=== PATIENT | female | born 1945 | race African-American/Black ===

== ENCOUNTER 2025-06-08 13:04 | Outpatient (AMB) | payer MEDICAID, SELFPAY ==
--- NOTE | 2025-06-08 13:08 | MHC.PC.OV ---
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 Accompanied by: Self / Same As Patient Allergies No Known Allergies Allergy (Verified 06/08/25 13:08) Medication List - Last Reconciled 06/08/25 by Fortunato Dillon MD [rollator As directed] Tobacco use date assessed: 06/08/25 Fall risk assessment: No Falls in past year Last assessed Fall Risk: 06/08/25 Dental Screening Dental Screen Date: 06/08/25 Did you have a dental visit in the last 12 months?: Yes Was dental information given to patient?: Patient has dentist HPI HPI Comments History of Present Illness Details History of Present Illness The patient is a 79-year-old female presenting for evaluation of chronic low back pain and a request for a mobility device. Chronic low back pain: The patient has been experiencing low back pain for approximately 2 years. The pain is localized to the lower back without radiation and is exacerbated by walking even short distances, requiring her to sit down to rest. There is no history of accidents or trauma to her back. She underwent a back X-ray about a month ago, which reportedly showed age-related weakening. Physical therapy was suggested at that time but has not been initiated. For pain management, she uses Tylenol as needed. Surgical History: - No history of surgeries was reported. Medications: - Tylenol as needed for back pain. - The patient denies taking any other medications. Social History: - Substance Use: Denies any history of smoking. - Functional Status: The patient has limited ability to walk due to back pain and needs to sit down after short distances. - Language: The patient speaks Swahili and her daughter served as an freelance interpreter/translator for a portion of the visit. Family History: - Denies family history of cancer, including breast and uterine cancer. Diagnostic Results: - Back X-ray (approximately one month ago): Reportedly showed her back is weakening due to her age. - Vitals: Initial blood pressure reading was elevated. Past Medical History - Chronic low back pain for approximately 2 years. - History of a nail injury as a child. - No known allergies. - Denies history of coronary artery disease. Health Maintenance - The patient has no prior history of Pap smears, mammograms, or colonoscopies. - Baseline labs will be ordered for health screening. [facility] Medical History (Updated 06/08/25 @ 13:37 by Fortunato Dillon MD) Gait instability Chronic lower back pain Family History (Updated 06/08/25 @ 13:09 by Cholo Singh MA) Mother No problems noted. Father No problems noted. Social History Housing: House Patient Tobacco Use Status: Never used Tobacco service: No Current occupational status: retired Cognitive needs: No Hearing needs: No Vision needs: No Questionnaire PHQ-9 Over the last 2 weeks, how often have you been bothered by any of the following problems? 1. Little interest or pleasure in doing things: not at all 2. Feeling down, depressed, or hopeless: not at all 3. Trouble falling or staying asleep, or sleeping too much: not at all 4. Feeling tired or having little energy: not at all 5. Poor appetite or overeating: not at all 6. Feeling bad about yourself - or that you are a failure or have let yourself or your family down: not at all 7. Trouble concentrating on things, such as reading the newspaper or watching television: not at all 8. Moving or speaking so slowly that other people could have noticed. Or the opposite - being so fidgety or restless that you have been moving around a lot more than usual: not at all 9. Thoughts that you would be better off or of hurting yourself in some way: not at all Total score: 0 Source: Developed by Drs. Home Fenton, Pina Vivar, Herbert Ochoa and colleagues, with an educational saud from [employer]. Thrive Questionnaire Date Thrive assessed: 06/05/25 I am a: Patient What is your living situation today?: I have a steady place to live Within the past 12 months, did the food you bought not last and you didn't have the money to get more?: Never true Within the past 12 months, did you worry whether your food would run out before you got money to buy more?: Never true Do you have trouble paying for medicines?: No Do you have trouble getting transportation to medical appointments?: No Do you have trouble paying your heating and electricity bill?: No Do you have trouble taking care of your child, family member or friend?: No Do you have trouble with day-to-day activities such as bathing, preparing meals, shopping, managing finances, etc.?: No Are you currently unemployed and looking for a job?: I choose not to answer this question Are you interested in more education?: No Please select the resources that you would like help with: Food and Utilities Currently or been in a relationship where the following occur: No concerns reported THRIVE Score: 0 AUDIT C Alcohol Use Questionnaire (AUDIT-C) 1. How often do you have a drink containing alcohol?: Never 3. How often do you have six or more drinks on one occasion?: Never Total Score: 0 WALTER-7 AMB Questionnaire WALTER-7 Feeling nervous, anxious, or on edge: 0 = Not at all Not being able to stop or control worryin = Not at all Worrying too much about different things: 0 = Not at all Trouble relaxin = Not at all Being so restless that it is hard to sit still: 0 = Not at all Becoming easily annoyed or irritable: 0 = Not at all Feeling afraid as if something awful might happen: 0 = Not at all Total WALTER-7 score (0-4 normal; 5-9 mild; 10-14 moderate; 15-21 severe): 0 Source: Developed by Drs. Home Fenton, Pina Vivar, Herbetr Ochoa and colleagues, with an educational saud from [employer]. Review of Systems Narrative Review of Systems - Musculoskeletal: Reports chronic low back pain for approximately two years, which worsens with walking. - Neurological: Denies radiation of back pain. - Constitutional: Reports difficulty walking significant distances. - Genitourinary/Gastrointestinal: Reports normal bowel and bladder function. - Integumentary: Denies swelling in her lower legs. 10-point ROS reviewed and negative except as noted in HPI Physical exam (Primary Care) Vital Signs: Last Vital Signs Temp 97.8 F 06/08/25 13:13 Pulse 68 06/08/25 13:13 Resp 16 06/08/25 13:13 BP 154/67 H 06/08/25 13:13 Pulse Ox 96 06/08/25 13:13 Oxygen Delivery Method Room Air 06/08/25 13:13 BMI result Body Mass Index 21.6 Tobacco/Smoking Status: Tobacco use Status Tobacco use date assessed 06/08/25 06/08/25 13:12 Patient Tobacco Use Status Never used Tobacco 06/08/25 13:12 PHQ-9: PHQ-9 Score PHQ-9: Total score 0 06/08/25 13:38 Thrive Assessment: Date of Thrive Assessment Date Thrive assessed 06/05/25 06/08/25 13:12 Currently or been in a relationship where the following occur: No concerns reported Narrative Physical Exam General: Well-appearing, in no acute distress. Vital signs: Blood pressure is a little elevated, will be rechecked before leaving. HEENT: Normocephalic, atraumatic. PERRLA, EOMI. Conjunctiva clear, sclera anicteric. Oropharynx clear, mucous membranes moist. TMs intact bilaterally. Neck: Supple, no lymphadenopathy, no thyromegaly, no JVD or carotid bruits. Cardiovascular: RRR, normal S1/S2, no murmurs, rubs, or gallops. Peripheral pulses 2+ and symmetric. No edema. Respiratory: Lungs clear to auscultation bilaterally, no wheezes, rales, or rhonchi. Normal effort. Abdomen: Soft, non-tender, non-distended. Normoactive bowel sounds. No hepatosplenomegaly, no masses. MSK: Full range of motion, no joint swelling or deformity. Normal gait. Chronic low back pain reported, ongoing for almost 2 years. Skin: Warm, dry, intact. No rashes, lesions, or pallor. Neuro: Alert and oriented x3. Cranial nerves II-XII intact. Strength 5/5 throughout. Sensation intact. Reflexes 2+ symmetric. Normal coordination and gait. Psych: Appropriate mood and affect. Normal judgment and insight. Coding Level of Care Code New Pt Level 4 (61622) Diagnoses Chronic lower back pain M54.50; G89.29 Gait instability R26.81 Elevated blood pressure reading R03.0 Assessment & Plan Assessment & Plan (1) Chronic lower back pain: Code(s): M54.50 - Low back pain, unspecified; G89.29 - Other chronic pain Category: Medical (2) Gait instability: Code(s): R26.81 - Unsteadiness on feet Category: Medical (3) Elevated blood pressure reading: Code(s): R03.0 - Elevated blood-pressure reading, without diagnosis of hypertension Plan Consent The planned physical examination was explained to the patient via a Swahili wool shearing supervisor. The patient provided verbal consent to proceed with the examination. Patient was informed and verbally consented to the use of an ambient scribe for clinic note documentation during this visit. Plan 1. Chronic Low Back Pain - Continue Tylenol as needed for pain management. - A referral will be placed for physical therapy to address the lower back. - Will request records, including imaging, from the patient's previous evaluation at another facility. 2. Gait Instability - A prescription for a rollator will be provided to assist with mobility and allow for rest as needed. - A wheelchair is not being ordered at this time, pending an evaluation and recommendations from physical therapy, as it is unlikely to be covered by insurance without further justification. 3. Health Maintenance/Screening - A complete blood count, comprehensive metabolic panel, hemoglobin A1c, lipid panel, B12, folate, and vitamin D levels will be ordered. - Screening for hepatitis B, hepatitis C, and HIV will be performed. - A urinalysis will be ordered. - The patient will follow up in two weeks to review the results of the lab work. 4. Elevated Blood Pressure Reading - The patient's blood pressure will be rechecked before she leaves the clinic today. Discussion Notes I had an initial encounter with the patient, a 79-year-old female, who was accompanied by her daughter for translation. We discussed her chronic low back pain, and I explained the plan to order a physical therapy referral and continue Tylenol for pain. Regarding the daughter's request for a mobility device, I explained that I would prescribe a rollator, which is beneficial as it allows the patient to exercise and sit when needed. I clarified that a wheelchair could not be ordered at this time as insurance would likely deny it without a formal evaluation and recommendation from physical therapy. I also informed her that comprehensive baseline lab work and a urinalysis would be ordered to assess her overall health. I requested that they sign a release to obtain the reports from the recent back X-ray performed elsewhere to get a better understanding of her condition. Consent for the physical exam was obtained after explaining the process through a wool shearing supervisor. A follow-up visit was scheduled in two weeks to review the results. Patient Instructions - Please go to a laboratory to have the ordered blood work and urine tests completed. - We are referring you to physical therapy to help with your low back pain. - You may continue taking Tylenol as you need it for your back pain. - You will receive a prescription for a rollator, which is a walker with a seat, to help you walk. - We need you to sign a form so that we can get the results of the back X-ray you had done recently. - Your blood pressure was a little high today, so we will check it again before you leave the office. - Please return for a follow-up appointment in two weeks to discuss your test results. Medical Decision Making The patient is a 79-year-old female presenting for an initial encounter with a chief complaint of chronic low back pain for the past two years, which limits her ambulation. The pain is non-radiating and there are no neurologic red flags on exam. An outside x-ray reportedly showed age-related degenerative changes, which is consistent with the presentation. The primary goals are to manage her pain, improve her mobility, and establish baseline health status as a new patient. My initial approach is conservative. I have referred her to physical therapy for evaluation and to begin a strengthening program. In response to her daughter's request for a mobility device, I have prescribed a rollator. This is a clinically appropriate first step as it promotes continued ambulation while providing a safe means of resting. I deferred the request for a wheelchair, explaining to the daughter that it requires a more thorough evaluation by physical therapy to establish medical necessity for insurance coverage, which is unlikely to be approved at this initial visit without further documentation. Her elevated blood pressure reading will be re-evaluated before she leaves to determine if it is a persistent issue. To establish her baseline health, I have ordered comprehensive lab studies, including a CBC, CMP, HbA1c, lipid panel, vitamin levels, and infectious disease screenings, along with a urinalysis. I am also requesting her prior imaging for review. A follow-up in two weeks will be used to review these results and assess her progress with the initial interventions. Total time spent caring for the patient today was 30 minutes. This includes time spent before the visit reviewing the chart, time spent documenting, and time spent reviewing laboratory results, diagnostic imaging, medications, performing a medically necessary evaluation, counseling on diagnoses, care coordination. Orders: Orders Comprehensive Met. Panel Today Z13.9 - Encounter for screening, unspecified Hemoglobin A1c Today Z13.9 - Encounter for screening, unspecified Hepatitis B Surface Antibody Today Z13.9 - Encounter for screening, unspecified Hepatitis B Surface Antigen Today Z13.9 - Encounter for screening, unspecified Hepatitis C Antibody Today Z13.9 - Encounter for screening, unspecified HIV Ab/Ag Today Z13.9 - Encounter for screening, unspecified Magnesium Today Z13.9 - Encounter for screening, unspecified Vitamin D 1,25 dihydroxy Today Z13.9 - Encounter for screening, unspecified Complete Blood Count Auto Diff Today Z13.9 - Encounter for screening, unspecified Lipid Panel Today Z13.9 - Encounter for screening, unspecified UA CC w/rflx Micro + Cult Today Z13.9 - Encounter for screening, unspecified Vitamin B12 and Folate Today Z13.9 - Encounter for screening, unspecified PT Evaluation and Treatment Today G89.29 - Other chronic pain, M54.50 - Low back pain, unspecified Medications: New [rollator] As directed 1 ea 0RF
--- NOTE | 2025-06-08 13:08 | MHC.PC.OV ---
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 Floor Tech Required: Yes Floor Tech Language: Swahili Accompanied by: Self / Same As Patient Allergies No Known Allergies Allergy (Verified 06/08/25 13:08) Medication List - Last Reconciled 06/08/25 by Fortunato Dillon MD [rollator As directed] Tobacco use date assessed: 06/08/25 Fall risk assessment: No Falls in past year Dental Screening Dental Screen Date: 06/08/25 Did you have a dental visit in the last 12 months?: Yes Did you have a dental problem in the last 6 months where you did not have access to dental care?: No Was dental information given to patient?: Patient has dentist HPI HPI Comments History of Present Illness Details Consent The planned physical examination was explained to the patient via a Swahili dual rate dealer. The patient provided verbal consent to proceed with the examination. Patient was informed and verbally consented to the use of an ambient scribe for clinic note documentation during this visit. History of Present Illness The patient is a 79-year-old female presenting for evaluation of chronic low back pain and a request for a mobility device. Chronic low back pain: The patient has been experiencing low back pain for approximately 2 years. The pain is localized to the lower back without radiation and is exacerbated by walking even short distances, requiring her to sit down to rest. There is no history of accidents or trauma to her back. She underwent a back X-ray about a month ago, which reportedly showed age-related weakening. Physical therapy was suggested at that time but has not been initiated. For pain management, she uses Tylenol as needed. Surgical History: - No history of surgeries was reported. Medications: - Tylenol as needed for back pain. - The patient denies taking any other medications. Social History: - Substance Use: Denies any history of smoking. - Functional Status: The patient has limited ability to walk due to back pain and needs to sit down after short distances. - Language: The patient speaks Swahili and her daughter served as an technician inventory specialist for a portion of the visit. Family History: - Denies family history of cancer, including breast and uterine cancer. Diagnostic Results: - Back X-ray (approximately one month ago): Reportedly showed her back is weakening due to her age. - Vitals: Initial blood pressure reading was elevated. Review of Systems - Musculoskeletal: Reports chronic low back pain for approximately two years, which worsens with walking. - Neurological: Denies radiation of back pain. - Constitutional: Reports difficulty walking significant distances. - Genitourinary/Gastrointestinal: Reports normal bowel and bladder function. - Integumentary: Denies swelling in her lower legs. 10-point ROS reviewed and negative except as noted in HPI Past Medical History - Chronic low back pain for approximately 2 years. - History of a nail injury as a child. - No known allergies. - Denies history of coronary artery disease. Health Maintenance - The patient has no prior history of Pap smears, mammograms, or colonoscopies. - Baseline labs will be ordered for health screening. Physical Exam General: Well-appearing, in no acute distress. Vital signs: Blood pressure is a little elevated, will be rechecked before leaving. HEENT: Normocephalic, atraumatic. PERRLA, EOMI. Conjunctiva clear, sclera anicteric. Oropharynx clear, mucous membranes moist. TMs intact bilaterally. Neck: Supple, no lymphadenopathy, no thyromegaly, no JVD or carotid bruits. Cardiovascular: RRR, normal S1/S2, no murmurs, rubs, or gallops. Peripheral pulses 2+ and symmetric. No edema. Respiratory: Lungs clear to auscultation bilaterally, no wheezes, rales, or rhonchi. Normal effort. Abdomen: Soft, non-tender, non-distended. Normoactive bowel sounds. No hepatosplenomegaly, no masses. MSK: Full range of motion, no joint swelling or deformity. Normal gait. Chronic low back pain reported, ongoing for almost 2 years. Straight leg test negative Skin: Warm, dry, intact. No rashes, lesions, or pallor. Neuro: Alert and oriented x3. Cranial nerves II-XII intact. Strength 5/5 throughout. Sensation intact. Reflexes 2+ symmetric. Normal coordination and gait. Psych: Appropriate mood and affect. Normal judgment and insight. Plan 1. Chronic Low Back Pain - Continue Tylenol as needed for pain management. - A referral will be placed for physical therapy to address the lower back. - Will request records, including imaging, from the patient's previous evaluation at another facility. 2. Gait Instability - A prescription for a rollator will be provided to assist with mobility and allow for rest as needed. - A wheelchair is not being ordered at this time, pending an evaluation and recommendations from physical therapy, as it is unlikely to be covered by insurance without further justification. 3. Health Maintenance/Screening - A complete blood count, comprehensive metabolic panel, hemoglobin A1c, lipid panel, B12, folate, and vitamin D levels will be ordered. - Screening for hepatitis B, hepatitis C, and HIV will be performed. - A urinalysis will be ordered. - The patient will follow up in two weeks to review the results of the lab work. 4. Elevated Blood Pressure Reading - monitor Discussion Notes I had an initial encounter with the patient, a 79-year-old female, who was accompanied by her daughter for translation. We discussed her chronic low back pain, and I explained the plan to order a physical therapy referral and continue Tylenol for pain. Regarding the daughter's request for a mobility device, I explained that I would prescribe a rollator, which is beneficial as it allows the patient to exercise and sit when needed. I clarified that a wheelchair could not be ordered at this time as insurance would likely deny it without a formal evaluation and recommendation from physical therapy. I also informed her that comprehensive baseline lab work and a urinalysis would be ordered to assess her overall health. I requested that they sign a release to obtain the reports from the recent back X-ray performed elsewhere to get a better understanding of her condition. Consent for the physical exam was obtained after explaining the process through a dual rate dealer. A follow-up visit was scheduled in two weeks to review the results. Patient Instructions - Please go to a laboratory to have the ordered blood work and urine tests completed. - We are referring you to physical therapy to help with your low back pain. - You may continue taking Tylenol as you need it for your back pain. - You will receive a prescription for a rollator, which is a walker with a seat, to help you walk. - We need you to sign a form so that we can get the results of the back X-ray you had done recently. - Your blood pressure was a little high today, so we will check it again before you leave the office. - Please return for a follow-up appointment in two weeks to discuss your test results. Medical Decision Making The patient is a 79-year-old female presenting for an initial encounter with a chief complaint of chronic low back pain for the past two years, which limits her ambulation. The pain is non-radiating and there are no neurologic red flags on exam. An outside x-ray reportedly showed age-related degenerative changes, which is consistent with the presentation. The primary goals are to manage her pain, improve her mobility, and establish baseline health status as a new patient. My initial approach is conservative. I have referred her to physical therapy for evaluation and to begin a strengthening program. In response to her daughter's request for a mobility device, I have prescribed a rollator. This is a clinically appropriate first step as it promotes continued ambulation while providing a safe means of resting. I deferred the request for a wheelchair, explaining to the daughter that it requires a more thorough evaluation by physical therapy to establish medical necessity for insurance coverage, which is unlikely to be approved at this initial visit without further documentation. Her elevated blood pressure reading will be re-evaluated before she leaves to determine if it is a persistent issue. To establish her baseline health, I have ordered comprehensive lab studies, including a CBC, CMP, HbA1c, lipid panel, vitamin levels, and infectious disease screenings, along with a urinalysis. I am also requesting her prior imaging for review. A follow-up in two weeks will be used to review these results and assess her progress with the initial interventions. Total time spent caring for the patient today was 30 minutes. This includes time spent before the visit reviewing the chart, time spent documenting, and time spent reviewing laboratory results, diagnostic imaging, medications, performing a medically necessary evaluation, counseling on diagnoses, care coordination. [facility] Medical History (Updated 06/08/25 @ 13:37 by Fortunato Dillon MD) Gait instability Chronic lower back pain Family History (Updated 06/08/25 @ 13:09 by Cholo Singh MA) Mother No problems noted. Father No problems noted. Social History Housing: House Patient Tobacco Use Status: Never used Tobacco service: No Current occupational status: retired Cognitive needs: No Hearing needs: No Vision needs: No Questionnaire PHQ-9 Over the last 2 weeks, how often have you been bothered by any of the following problems? 1. Little interest or pleasure in doing things: not at all 2. Feeling down, depressed, or hopeless: not at all 3. Trouble falling or staying asleep, or sleeping too much: not at all 4. Feeling tired or having little energy: not at all 5. Poor appetite or overeating: not at all 6. Feeling bad about yourself - or that you are a failure or have let yourself or your family down: not at all 7. Trouble concentrating on things, such as reading the newspaper or watching television: not at all 8. Moving or speaking so slowly that other people could have noticed. Or the opposite - being so fidgety or restless that you have been moving around a lot more than usual: not at all 9. Thoughts that you would be better off or of hurting yourself in some way: not at all Total score: 0 Source: Developed by Drs. Home Fenton, Pina Vivar, Herbert Ochoa and colleagues, with an educational saud from [employer]. Thrive Questionnaire Date Thrive assessed: 06/05/25 I am a: Patient What is your living situation today?: I have a steady place to live Within the past 12 months, did the food you bought not last and you didn't have the money to get more?: Never true Within the past 12 months, did you worry whether your food would run out before you got money to buy more?: Never true Do you have trouble paying for medicines?: No Do you have trouble getting transportation to medical appointments?: No Do you have trouble paying your heating and electricity bill?: No Do you have trouble taking care of your child, family member or friend?: No Do you have trouble with day-to-day activities such as bathing, preparing meals, shopping, managing finances, etc.?: No Are you currently unemployed and looking for a job?: I choose not to answer this question Are you interested in more education?: No Please select the resources that you would like help with: Food and Utilities Currently or been in a relationship where the following occur: No concerns reported THRIVE Score: 0 AUDIT C Alcohol Use Questionnaire (AUDIT-C) 1. How often do you have a drink containing alcohol?: Never 3. How often do you have six or more drinks on one occasion?: Never Total Score: 0 WALTER-7 AMB Questionnaire WALTER-7 Feeling nervous, anxious, or on edge: 0 = Not at all Not being able to stop or control worryin = Not at all Worrying too much about different things: 0 = Not at all Trouble relaxin = Not at all Being so restless that it is hard to sit still: 0 = Not at all Becoming easily annoyed or irritable: 0 = Not at all Feeling afraid as if something awful might happen: 0 = Not at all Total WALTER-7 score (0-4 normal; 5-9 mild; 10-14 moderate; 15-21 severe): 0 Source: Developed by Drs. Home Fenton, Pina Vivar, Herbert Ochoa and colleagues, with an educational saud from [employer]. Physical exam (Primary Care) Vital Signs: Last Vital Signs Temp 97.8 F 06/08/25 13:13 Pulse 68 06/08/25 13:13 Resp 16 06/08/25 13:13 BP 154/67 H 06/08/25 13:13 Pulse Ox 96 06/08/25 13:13 Oxygen Delivery Method Room Air 06/08/25 13:13 BMI result Body Mass Index 21.6 Tobacco/Smoking Status: Tobacco use Status Tobacco use date assessed 06/08/25 06/08/25 13:12 Patient Tobacco Use Status Never used Tobacco 06/08/25 13:12 PHQ-9: PHQ-9 Score PHQ-9: Total score 0 06/08/25 13:12 Thrive Assessment: Date of Thrive Assessment Date Thrive assessed 06/05/25 06/08/25 13:12 Currently or been in a relationship where the following occur: No concerns reported Coding Level of Care Code New Pt Level 4 (96723) Diagnoses Chronic lower back pain M54.50; G89.29 Gait instability R26.81 Assessment & Plan Assessment & Plan (1) Chronic lower back pain: Code(s): M54.50 - Low back pain, unspecified; G89.29 - Other chronic pain Category: Medical (2) Gait instability: Code(s): R26.81 - Unsteadiness on feet Category: Medical Plan Orders: Orders Comprehensive Met. Panel Today Z13.9 - Encounter for screening, unspecified Hemoglobin A1c Today Z13.9 - Encounter for screening, unspecified Hepatitis B Surface Antibody Today Z13.9 - Encounter for screening, unspecified Hepatitis B Surface Antigen Today Z13.9 - Encounter for screening, unspecified Hepatitis C Antibody Today Z13.9 - Encounter for screening, unspecified HIV Ab/Ag Today Z13.9 - Encounter for screening, unspecified Magnesium Today Z13.9 - Encounter for screening, unspecified Vitamin D 1,25 dihydroxy Today Z13.9 - Encounter for screening, unspecified Complete Blood Count Auto Diff Today Z13.9 - Encounter for screening, unspecified Lipid Panel Today Z13.9 - Encounter for screening, unspecified UA CC w/rflx Micro + Cult Today Z13.9 - Encounter for screening, unspecified Vitamin B12 and Folate Today Z13.9 - Encounter for screening, unspecified PT Evaluation and Treatment Today G89.29 - Other chronic pain, M54.50 - Low back pain, unspecified Medications: New [rollator] As directed 1 ea 0RF
[2025-06-08 13:13] VITALS: BP 154/67; PULSE 68; RESP 16; TEMP 36.6; O2SAT 96; BMI 21.6
== END 2025-06-08 13:38 | disposition home or self-care (01) ==
LOC: HO.HMCFMS 13:05
PROVIDERS: Visit Provider Student in an Organized Health Care Education/Training Program
DX: M54.50 Low back pain, unspecified (principal); G89.29 Other chronic pain; R26.81 Unsteadiness on feet; R03.0 Elevated blood-pressure reading, without diagnosis of hypertension

== ENCOUNTER 2025-06-08 13:04 | Outpatient (REF) | payer MEDICAID, SELFPAY ==
[2025-06-08 18:08] LABS: Appearance Urine Clear; Glucose Urine UA Negative (Negative); PH 8.5 (5.0-9.0); Specific Gravity - Urine 1.010 (1.005-1.025); UMIC TRIGGER UACC YES
[2025-06-08 18:09] LABS: MANUAL DIFF FLAG NO
[2025-06-08 18:21] LABS: UACC Culture Trigger YES
[2025-06-08 18:39] LABS: Hematocrit 43.0 % (37.0-47.0); Hemoglobin 13.7 g/dl (12.0-16.0); Imm Gran Abs Auto 0.02 X10*3/uL (0.00-0.03); Imm Gran Pct Auto 0.2 % (0.0-0.4); Lymphocytes Absolute Auto 4.1 X10*3/uL (1.2-4.9); Mean Corpuscular HGB Conc 31.9 g/dl (31.0-35.0); Mean Corpuscular Hemoglobin 30.4 pg (27.0-33.0); Mean Corpuscular Volume 95.3 fL (80.0-98.0); NRBC Abs Auto 0.000 X10*3/uL (0.0-0.012); NRBC Pct Auto 0.0 /100WBC (0.0-0.2); Platelet Count 261 X10*3/uL (160-400); Red Blood Count 4.51 X10*6/uL (4.20-5.50); White Blood Count 9.4 X10*3/uL (4.8-10.8)
[2025-06-08 18:42] LABS: Alanine Aminotransferase 21 U/L (0-31); Albumin Level 4.3 g/dL (3.5-5.0); Alkaline Phosphatase 65 U/L (39-117); Anion Gap 12 (12-20); Aspartate Amino Transferase 24 U/L (5-31); Blood Urea Nitrogen 17 mg/dL (9-16); Calcium 9.2 mg/dL (8.4-10.2); Carbon Dioxide 30 mmol/L (22-29); Chloride 102 mmol/L (96-108); Cholesterol 218 mg/dL (<200); Estimated Glomerular Filt Rate > 60; HDL Cholesterol 55 mg/dL (>40); Magnesium 2.4 mg/dL (1.6-2.6); Potassium 4.3 mmol/L (3.3-5.1); Sodium 140 mmol/L (135-145); Total Protein 7.7 g/dL (6.5-8.0); Triglycerides 215 mg/dL (<150)
[2025-06-08 19:05] LABS: Folate 6.9 ng/mL (> or = 4.0); Vitamin B12 380 pg/mL (200-900)
[2025-06-09 06:57] LABS: HBS Num1 2.16 mIU/mL (0-7.99); HBsAGNum1 0.49 S/CO (0.00-0.99); HIV Num 1 0.06 S/CO (0.00-0.99); Hepatitis B Surface Antigen Negative (Negative); ~HepC Num1 0.16 S/CO (0.00-0.79); ~Hepatitis B Surface Antibody NONREACTIVE (Nonreactive); ~Hepatitis C Antibody Nonreactive (Nonreactive)
[2025-06-13 08:55] LABS: VITAMIN D (1,25 OH) D3 56 pg/mL; Vit D (1,25-Dihydroxy) Total 56 pg/mL (18-72); Vitamin D (1,25 OH) D2 <8 pg/mL
== END 2025-06-08 13:05 | disposition home or self-care (01) ==
LOC: HO.HKASLDS 13:04
PROVIDERS: PCP Student in an Organized Health Care Education/Training Program; Visit Provider Student in an Organized Health Care Education/Training Program
DX: R03.0 Elevated blood-pressure reading, without diagnosis of hypertension (principal); M54.50 Low back pain, unspecified; G89.29 Other chronic pain; R26.89 Other abnormalities of gait and mobility
CPT/HCPCS: 36415; 80053; 80061; 81001; 82607; 82652; 82746; 83036; 83735; 85025; 86706; 86803; 87086; 87340; 87389; 99202

== ENCOUNTER 2025-06-23 10:27 | Outpatient (AMB) | payer MEDICAID, SELFPAY ==
[2025-06-23 10:29] VITALS: BP 118/64; PULSE 70; RESP 16; TEMP 36.7; O2SAT 97; BMI 22.3
--- NOTE | 2025-06-23 10:29 | MHC.PC.OV ---
Vital Signs 06/23/25 10:29 Height 5 ft 2.6 in Weight 124 lb 4 oz BMI 22.3 BP 118/64 Blood Pressure Location Lt brachial Position Sitting Respiration 16 Pulse 70 Pulse Source Pulse Oximeter Temp 98.0 F Temp Source Oral Pulse Oximetry (%) 97 Oxygen Delivery Method Room Air Intake Visit Reasons: 2 wk f/u - lab review Mine Inspector Required: Yes Mine Inspector Language: Swahili Accompanied by: Daughter Allergies No Known Allergies Allergy (Verified 06/23/25 10:29) Tobacco use date assessed: 06/23/25 Fall risk assessment: No Falls in past year Last assessed Fall Risk: 06/23/25 Dental Screening Dental Screen Date: 06/23/25 Did you have a dental visit in the last 12 months?: Yes Did you have a dental problem in the last 6 months where you did not have access to dental care?: No Was dental information given to patient?: Patient has dentist HPI HPI Comments History of Present Illness Details History of Present Illness The patient is a 79-year-old female presenting for a review of laboratory results. Hyperlipidemia: Recent laboratory results revealed elevated triglycerides at 215 mg/dL, total cholesterol at 218 mg/dL, and LDL cholesterol at 120 mg/dL. Her HDL cholesterol was within normal limits at 55 mg/dL. Microscopic Hematuria: A recent urinalysis detected microscopic blood in the urine. Back Pain: The patient previously had a back x-ray at [facility], but the results have not yet been received. A physical therapy referral was also placed for this issue. Gait Instability: A prescription for a Rolator was previously provided to assist with mobility. Social History: - Functional Status: Requires a Rolator for ambulation. Diagnostic Results: - CBC: White blood cells, red blood cells, hemoglobin, and platelets are normal. - CMP: Sodium, potassium, kidney function, and liver function are normal. - Lipid Panel: Triglycerides are elevated at 215 mg/dL (normal <150 mg/dL), total cholesterol is elevated at 218 mg/dL (normal <200 mg/dL), and LDL is elevated at 120 mg/dL (normal <100 mg/dL). HDL is normal at 55 mg/dL (normal >40 mg/dL). - Vitamins: Vitamin B12, vitamin D, and folate levels are good. - Infectious Disease Screen: Hepatitis B, Hepatitis C, and HIV screens are negative. - Urinalysis: Positive for microscopic hematuria. - Imaging: A back x-ray was performed, but results have not been received. Past Medical History - Denies diabetes. - Denies anemia. Health Maintenance - Reviewed recent laboratory studies, which were largely reassuring. [facility] Medical History (Updated 06/23/25 @ 10:51 by Fortunato Dillno MD) Hyperlipidemia Microhematuria Gait instability Chronic lower back pain Family History Mother No problems noted. Father No problems noted. Social History Housing: House Patient Tobacco Use Status: Never used Tobacco service: No Current occupational status: retired Cognitive needs: Yes (has walker) Hearing needs: No Vision needs: No Questionnaire PHQ-9 Over the last 2 weeks, how often have you been bothered by any of the following problems? 1. Little interest or pleasure in doing things: not at all 2. Feeling down, depressed, or hopeless: not at all 3. Trouble falling or staying asleep, or sleeping too much: not at all 4. Feeling tired or having little energy: not at all 5. Poor appetite or overeating: not at all 6. Feeling bad about yourself - or that you are a failure or have let yourself or your family down: not at all 7. Trouble concentrating on things, such as reading the newspaper or watching television: not at all 8. Moving or speaking so slowly that other people could have noticed. Or the opposite - being so fidgety or restless that you have been moving around a lot more than usual: not at all 9. Thoughts that you would be better off or of hurting yourself in some way: not at all Total score: 0 Depression Screening Interpretation: Negative Depression Screening Done: Yes Source: Developed by Drs. Home Fenton, Pina Vivar, Herbert Ochoa and colleagues, with an educational saud from [employer]. Thrive Questionnaire Date Thrive assessed: 06/23/25 I am a: Patient What is your living situation today?: I have a steady place to live Within the past 12 months, did the food you bought not last and you didn't have the money to get more?: Never true Within the past 12 months, did you worry whether your food would run out before you got money to buy more?: Never true Do you have trouble paying for medicines?: No Do you have trouble getting transportation to medical appointments?: No Do you have trouble paying your heating and electricity bill?: No Do you have trouble taking care of your child, family member or friend?: No Do you have trouble with day-to-day activities such as bathing, preparing meals, shopping, managing finances, etc.?: No Are you currently unemployed and looking for a job?: I choose not to answer this question Are you interested in more education?: No Currently or been in a relationship where the following occur: No concerns reported THRIVE Score: 0 AUDIT C Alcohol Use Questionnaire (AUDIT-C) 1. How often do you have a drink containing alcohol?: Never 3. How often do you have six or more drinks on one occasion?: Never Total Score: 0 WALTER-7 AMB Questionnaire WALTER-7 Date WALTER - 7 assessed: 06/23/25 Feeling nervous, anxious, or on edge: 0 = Not at all Not being able to stop or control worryin = Not at all Worrying too much about different things: 0 = Not at all Trouble relaxin = Not at all Being so restless that it is hard to sit still: 0 = Not at all Becoming easily annoyed or irritable: 0 = Not at all Feeling afraid as if something awful might happen: 0 = Not at all Total WALTER-7 score (0-4 normal; 5-9 mild; 10-14 moderate; 15-21 severe): 0 Source: Developed by Drs. Home Fenton, Pina Vivar, Herbert Ochoa and colleagues, with an educational saud from [employer]. Review of Systems Narrative Review of Systems 10-point ROS reviewed and negative except as noted in HPI Physical exam (Primary Care) Vital Signs: Last Vital Signs Temp 98.0 F 06/23/25 10:29 Pulse 70 06/23/25 10:29 Resp 16 06/23/25 10:29 BP 118/64 06/23/25 10:29 Pulse Ox 97 06/23/25 10:29 Oxygen Delivery Method Room Air 06/23/25 10:29 BMI result Body Mass Index 22.3 Tobacco/Smoking Status: Tobacco use Status Tobacco use date assessed 06/23/25 06/23/25 10:30 Patient Tobacco Use Status Never used Tobacco 06/23/25 10:30 PHQ-9: PHQ-9 Score PHQ-9: Total score 0 06/23/25 10:30 Depression Screening Interpretation: Negative Thrive Assessment: Date of Thrive Assessment Date Thrive assessed 06/23/25 06/23/25 10:30 Currently or been in a relationship where the following occur: No concerns reported Narrative Physical Exam General: Well-appearing, in no acute distress. Vital signs: Within normal limits. HEENT: Normocephalic, atraumatic. PERRLA, EOMI. Conjunctiva clear, sclera anicteric. Oropharynx clear, mucous membranes moist. TMs intact bilaterally. Neck: Supple, no lymphadenopathy, no thyromegaly, no JVD or carotid bruits. Cardiovascular: RRR, normal S1/S2, no murmurs, rubs, or gallops. Peripheral pulses 2+ and symmetric. No edema. Respiratory: Lungs clear to auscultation bilaterally, no wheezes, rales, or rhonchi. Normal effort. Abdomen: Soft, non-tender, non-distended. Normoactive bowel sounds. No hepatosplenomegaly, no masses. MSK: Full range of motion, no joint swelling or deformity. Normal gait. Skin: Warm, dry, intact. No rashes, lesions, or pallor. Neuro: Alert and oriented x3. Cranial nerves II-XII intact. Strength 5/5 throughout. Sensation intact. Reflexes 2+ symmetric. Normal coordination and gait. Psych: Appropriate mood and affect. Normal judgment and insight. Office Procedures Flu Questionnaire Does the patient have a severe egg allergy?: No Does the patient have severe life threatening allergies?: No Does the patient have a fever or illness today?: No Has the patient ever had Guillain-Ballwin Syndrome?: No Has the patient ever had any past reaction to a flu shot?: No Immunizations Fluarix [id number] (PF) 45 mcg (15 mcg x 3)/0.5 mL IM syringe Performing Provider: Fortunato Dillon MD [place] [facility] Documented (not given) by: Scarlett Clemons CMA on 06/23/25 10:39 Reason Not Given: Patient Refused Coding Level of Care Code Est Pt Level 3 (17856) Diagnoses Hyperlipidemia E78.5 Chronic lower back pain M54.50; G89.29 Gait instability R26.81 Microhematuria R31.29 Assessment & Plan Assessment & Plan (1) Hyperlipidemia: Code(s): E78.5 - Hyperlipidemia, unspecified Category: Medical (2) Chronic lower back pain: Code(s): M54.50 - Low back pain, unspecified; G89.29 - Other chronic pain Category: Medical (3) Gait instability: Code(s): R26.81 - Unsteadiness on feet Category: Medical (4) Microhematuria: Code(s): R31.29 - Other microscopic hematuria Category: Medical Plan Consent Patient was informed and verbally consented to the use of an ambient scribe for clinic note documentation during this visit. Plan 1. Hyperlipidemia - The recent lipid panel showed mildly elevated triglycerides (215 mg/dL), total cholesterol (218 mg/dL), and LDL (120 mg/dL). - Given the patient's age of 79, these values are not concerning and no pharmacologic intervention is planned at this time. 2. Microscopic Hematuria - Repeat urinalysis will be performed today to confirm the finding. - If the repeat urinalysis is again positive for blood, an ultrasound of the uterus and bladder will be ordered to investigate for a source of bleeding. 3. Unspecified Back Issue - A physical therapy referral has been placed. - The patient's caregiver was advised to contact [facility] to get the phone number for physical therapy and to call them to schedule an appointment. - Will continue to monitor for receipt of the back x-ray results from [facility]. 4. Gait Instability - A prescription for a Rolator has been provided to improve mobility and safety. Discussion Notes I reviewed the patient's recent lab results with her caregiver. I explained that her CBC, kidney function, liver function, vitamin levels, and infectious disease screenings were all normal. I noted the mildly elevated cholesterol and triglyceride levels but stated that, given her age, I was not concerned and would not be initiating treatment. The finding of microscopic blood in her urine was discussed, and I explained the plan to repeat the test today. I informed the caregiver that if the hematuria persists, I will order an ultrasound of the uterus and bladder. We also discussed the pending back x-ray results and the existing physical therapy referral and Rolator prescription. Overall, I conveyed that the patient is doing well for her age. Patient Instructions - Please provide a urine sample today for a repeat test. - If blood is found in the urine again, you will need to get an ultrasound of your lower belly. - Ask [facility] for the phone number for physical therapy and call to schedule an appointment. - Please ensure you have and use the Rolator (walker) that was prescribed. Medical Decision Making The patient is a 79-year-old female presenting for review of recent laboratory results. The labs revealed a mild hyperlipidemia (Triglycerides 215, Cholesterol 218, LDL 120), which is not clinically significant in the context of her advanced age, and the risks of treatment would outweigh the benefits for primary prevention. Therefore, a watchful waiting approach is appropriate. The finding of microscopic hematuria on urinalysis requires further evaluation to rule out underlying urologic or gynecologic pathology, including malignancy, which is a concern in this age group. The initial step is to repeat the urinalysis to confirm persistence. If positive, non-invasive imaging with an ultrasound of the bladder and uterus is the appropriate next step. Care coordination continues for her back pain and mobility, with a pending physical therapy evaluation and a prescription for a Rolator already provided. Follow-up on the outstanding back x-ray results is also necessary. Overall, the patient's condition is stable. Total Time Statement 20 min Total time spent caring for the patient today includes pre-visit chart review, documentation, review of laboratory and diagnostic imaging results, medication reconciliation, medically necessary evaluation, counseling on diagnoses, care coordination, ordering appropriate tests and medications, review of tests performed by other providers, reporting test results to the patient, and communication with other healthcare providers. Orders: Orders Influenza [id number] Immunization Today Z23 - Encounter for immunization UA CC w/rflx Micro + Cult Today R31.29 - Other microscopic hematuria
== END 2025-06-23 11:22 | disposition home or self-care (01) ==
LOC: HO.HMCFMS 10:27
PROVIDERS: Visit Provider Student in an Organized Health Care Education/Training Program
DX: E78.5 Hyperlipidemia, unspecified (principal); M54.50 Low back pain, unspecified; G89.29 Other chronic pain; R26.81 Unsteadiness on feet; R31.29 Other microscopic hematuria; Z23 Encounter for immunization

== ENCOUNTER 2025-06-23 10:27 | Outpatient (REF) | payer MEDICAID, SELFPAY ==
[2025-06-23 13:38] LABS: Appearance Urine Clear; Glucose Urine UA Negative (Negative); PH 8.0 (5.0-9.0); Specific Gravity - Urine <= 1.005 (1.005-1.025); UMIC TRIGGER UACC YES
[2025-06-23 14:09] LABS: UACC Culture Trigger YES
== END 2025-06-23 10:28 | disposition home or self-care (01) ==
LOC: HO.HKASLDS 10:27
PROVIDERS: PCP Student in an Organized Health Care Education/Training Program; Visit Provider Student in an Organized Health Care Education/Training Program
DX: R31.29 Other microscopic hematuria (principal); Z28.21 Immunization not carried out because of patient refusal; E78.5 Hyperlipidemia, unspecified; M54.50 Low back pain, unspecified; R26.81 Unsteadiness on feet; G89.29 Other chronic pain
CPT/HCPCS: 81001; 87086; 90471; 99212